=== PATIENT | male | born 1975 | race Caucasian/White ===

== ENCOUNTER 2018-08-22 16:13 | Observation (INO) | payer BC ==
[2018-08-22] MEDS ORDERED: Ketorolac INJ* 30 MG/ML 1 ML VIAL IV PUSH ONE (16:19)
[2018-08-22 16:42] LABS: ABS Basophils 0.1 10^3/ul (0-0.2); ABS Eosinophils 0.1 10^3/ul (0-0.6); ABS Lymphocytes 2.4 10^3/ul (1.0-4.8); ABS Monocytes 0.8 10^3/ul (0-0.8); ABS Neutrophils 8.3 10^3/ul (1.5-7.7); ABS Nucleated RBC 0 10^3/ul; Eosinophil % 0.8 % (0-6); Hematocrit 45 % (42-52); Hemoglobin 15.6 g/dl (14.0-18.0); Lymphocyte % 20.9 % (25-47); Mean Corpuscular HGB Conc 34 g/dl (31-36); Mean Corpuscular Hemoglobin 30 pg (27-31); Mean Corpuscular Volume 88 fL (80-94); Mean Platelet Volume 8.5 fL (7.4-10.4); Nucleated Red Blood Cells % 0.1; Platelet Count 235 10^3/ul (150-450); Red Blood Count 5.15 10^6/ul (4.00-5.40); Red Cell Distribution Width 13 % (10.5-15); White Blood Count 11.6 10^3/ul (3.5-10.8)
--- NOTE | 2018-08-22 16:54 | ED ---
GI/ HPI - HPI Summary HPI Summary: The pt is a 43 y/o male presenting [facility] c/o sudden onset R flank pain worse today evening. He reports a Mhx of kidney stones. Dr. Amara MD is his urologist. The pain is rated 7/10 in severity. He notes intermittent hematuria lasting 5 days and nausea but denies vomiting, diarrhea, SOB, and CP. 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 Negative: Vomiting, Diarrhea - Allergy/Home Medications Allergies/Adverse Reactions: Allergies Allergy/AdvReac Type Severity Reaction Status Date / Time No Known Allergies Allergy Verified 08/22/18 16:23 PMH/Surg Hx/FS Hx/Imm Hx Previously Healthy: No Cardiovascular History: Reports: Hx Pacemaker/ICD - 3rd degree heart block History: Reports: Hx Kidney Stones - Cancer History Cancer Type, Location and Year: None reported Infectious Disease History: No Infectious Disease History: Denies: Traveled Outside the [place] in Last 30 Days - Family History Known Family History: Positive: Hypertension, Other - CA - Social History Occupation: Employed Full-time Lives: With Family Alcohol Use: None Substance Use Type: Reports: None Smoking Status (MU): Never Smoked Tobacco Review of Systems Negative: Chest Pain Negative: Shortness Of Breath Positive: Nausea. Negative: Vomiting, Diarrhea Positive: flank pain - R , hematuria All Other Systems Reviewed And Are Negative: Yes Physical Exam - Summary Physical Exam Summary: Appearance: Colicky appearing, Well-nourished, lying in bed comfortable Skin: Warm, dry, no obvious rash Eyes: sclera anicteric, no conjunctival pallor ENT: mucous membranes moist Neck: deferred Respiratory: No signs of respiratory distress Cardiovascular: Appears well perfused, pulses are nml Abdomen: deferred Musculoskeletal: Moving all 4 extremities without obvious discomfort Neurological: Awake and alert, mentation is normal, speech is fluent and appropriate Psychiatric: affect is normal, does not appear anxious or depressed Triage Information Reviewed: Yes Vital Signs On Initial Exam: Initial Vitals Temp Pulse Resp BP Pulse Ox 97.7 F 78 22 155/81 96 08/22/18 16:21 08/22/18 16:21 08/22/18 16:21 08/22/18 16:21 08/22/18 16:21 Vital Signs Reviewed: Yes Diagnostics - Vital Signs Vital Signs Temp Pulse Resp BP Pulse Ox 08/22/18 16:21 97.7 F 78 22 155/81 96 - Laboratory Lab Results: Lab Results 08/22/18 Range/Units 16:23 WBC 11.6 H (3.5-10.8) 10^3/ul RBC 5.15 (4.00-5.40) 10^6/ul Hgb 15.6 (14.0-18.0) g/dl Hct 45 (42-52) % MCV 88 (80-94) fL MCH 30 (27-31) pg MCHC 34 (31-36) g/dl RDW 13 (10.5-15) % Plt Count 235 (150-450) 10^3/ul MPV 8.5 (7.4-10.4) fL Neut % (Auto) 71.2 (38-83) % Lymph % (Auto) 20.9 L (25-47) % Sebastian % (Auto) 6.5 (0-7) % Eos % (Auto) 0.8 (0-6) % Baso % (Auto) 0.6 (0-2) % Absolute Neuts (auto) 8.3 H (1.5-7.7) 10^3/ul Absolute Lymphs (auto) 2.4 (1.0-4.8) 10^3/ul Absolute Monos (auto) 0.8 (0-0.8) 10^3/ul Absolute Eos (auto) 0.1 (0-0.6) 10^3/ul Absolute Basos (auto) 0.1 (0-0.2) 10^3/ul Absolute Nucleated RBC 0 10^3/ul Nucleated RBC % 0.1 Result Diagrams: 08/22/18 16:23 08/22/18 16:23 Lab Statement: Any lab studies that have been ordered have been reviewed, and results considered in the medical decision making process. - CT Abd/Pel CT CT Interpretation Completed By: Radiologist - IMPRESSION: 1. THERE IS AN 8 MM CALCULUS PRESENT AT THE RIGHT URETEROPELVIC JUNCTION CAUSING MILD HYDRONEPHROSIS. 2. THERE ARE SEVERAL SMALL ADDITIONAL BILATERAL RENAL CALCULI. The ED physician reviewed this radiology report. - EKG 16:37 Cardiac Rate: NL EKG Rhythm: Sinus Rhythm Summary of EKG Findings: NSR at 76 BPM, P waves, QRS complex, and T waves are within normal limits, T waves and intervals are normal, no ischemic changes. This is a normal EKG GIGU Course/Dx - Course Course Of Treatment: A 43 year-old M presents to the ED with a CC of sudden onset R flank pain worse today evening. The pain is rated 7/10 in severity. He notes intermittent hematuria lasting 5 days and nausea but denies vomiting, diarrhea, SOB, and CP. A physical exam revealed a colicky appearance. An EKG reveals is unremarkable. An Abd/Pel CT is abnormal. In the ED course, the pt was given N.s 0.9% 4000 ml , Ketorolac 10 mg IV and Ondansetron 8mg IV which improved the symptoms. I discussed the care of the patient with Dr. Maloney who agreed to see the pt in the ED and recommended admitting and planning for surgery. Patient will be admitted with a final Dx of renal calculi. Pt is agreeable with this plan. Allergies noted. - Diagnoses Provider Diagnoses: Renal calculi - Physician Notifications Discussed Care Of Patient With: Severo Maloney - Urologist Time Discussed With Above Provider: 17:50 Instructed by Provider To: MD Will See In ED - Dr. Maloney also recommends admiting the pt and planning a surgery for tomorrow. Discharge - Sign-Out/Discharge Documenting (check all that apply): Patient Departure - Admit - Discharge Plan Condition: Stable Disposition: ADMITTED TO [facility] - Billing Disposition and Condition Condition: STABLE Disposition: Admitted to [facility] - Attestation Statements Document Initiated by Scribe: Yes Documenting Scribe: Olimpia Jackson Provider For Whom Grzegorz is Documenting (Include Credential): Dr. Jayden Rahman MD Scribe Attestation: Olimpia Bean , scribed for Dr. Jayden Rahman MD on 08/22/18 at 2140. Scribe Documentation Reviewed: Yes Provider Attestation: The documentation as recorded by the scribeOlimpia accurately reflects the service I personally performed and the decisions made by me, Dr. Jayden Rahman MD
[2018-08-22 17:09] LABS: Urine Appearance Clear; Urine Blood 2+ (Negative); Urine Color Yellow; Urine Ketones Trace (Negative); Urine Protein Negative (Negative); Urine Red Blood Cell 2+(6-10/hpf) (Absent); Urine Specific Gravity 1.016 (1.010-1.030); Urine Urobilinogen Negative (Negative); Urine White Blood Cell Trace(0-5/hpf) (Absent)
[2018-08-22] MEDS ORDERED: Ondansetron INJ* 2 MG/ML VIAL IV ONE (17:29)
[2018-08-22] MEDS ORDERED: NS 0.9% 1000 ML* 2,000 ML IV ONE (17:29)
[2018-08-22] MEDS ORDERED: Ondansetron INJ* 2 MG/ML VIAL ONE (17:30)
[2018-08-22] MEDS: NS 0.9% 1000 ML* 2,000 ML IV ONE (17:33)
[2018-08-22] MEDS ORDERED: Morphine VIAL* 4 MG/ML VIAL (1 ml vial) IV ONE (18:08)
[2018-08-22] MEDS ORDERED: Acetaminophen TAB* 325 MG PO PRN (19:13)
[2018-08-22] MEDS ORDERED: Ondansetron INJ* 2 MG/ML VIAL IV PRN (19:13)
[2018-08-22] MEDS ORDERED: Morphine VIAL* 4 MG/ML VIAL (1 ml vial) IV PRN (19:13)
[2018-08-22] MEDS ORDERED: cefTRIAXone(*) 1 GM in NS 0.9% 50 ML* 50 ML IVPB SCH (19:15)
[2018-08-22] MEDS ORDERED: cefTRIAXone(*) 1 GM in NS 0.9% 50 ML* 50 ML IVPB STA (19:22)
[2018-08-22] MEDS ORDERED: Ketorolac INJ* 15 MG/ML 1 ML VIAL ONE (19:28)
[2018-08-22] MEDS: Ketorolac INJ* 15 MG/ML 1 ML VIAL IV PUSH PRN (19:31)
--- NOTE | 2018-08-22 20:27 | CONS ---
CC: Jose Newton MD * UROLOGY CONSULTATION: DATE OF CONSULT: 08/22/18 REFERRING PHYSICIAN: Dr. Rahman in the Emergency Department. DIAGNOSES: 1. Right flank pain. 2. Right hydronephrosis. 3. Obstructing calculus, right ureteropelvic junction. HISTORY OF PRESENT ILLNESS: Moshe Ypa is a 43-year-old gentleman with a history of bilateral renal calculi. He had actually been evaluated in my office just a day earlier for an episode of gross hematuria and left flank pain. He was noted to be missing a previously noted small left renal calculus. My feeling was that he may have passed that calculus and he now called earlier today with complaints of right flank pain and since he was known to have a lower pole calculus in the right kidney, I requested him to come to the emergency room. A CT scan done in the emergency room revealed a fairly large, about 8 to 9 mm calculus at the right ureteropelvic junction with right hydronephrosis. PAST MEDICAL HISTORY: Significant for third-degree heart block for which he underwent pacemaker insertion about 10 to 12 years ago. ALLERGIES: No known drug allergies. REVIEW OF SYSTEMS: He is otherwise in excellent health. There is no history of diabetes mellitus or any other major systemic illness. He denies any chest pain or shortness of breath. PHYSICAL EXAM: Reveals a pleasant mildly uncomfortable middle-aged gentleman. Blood pressure is 155/81, pulse rate 78 per minute and regular, respirations 22 per minute, temperature 97.7, oxygen saturation 97% on room air. Cardiovascular : Regular rate and rhythm. S1 and S2. Lungs are clear bilaterally. Abdomen is soft with right flank tenderness. DIAGNOSTIC STUDIES/LAB DATA: Review of labs revealed a white count of 11.6, hemoglobin and hematocrit 15.6 and 45 with a platelet count of 235,000. Review of chemistry studies reveals a sodium of 139, potassium of 4.0, BUN and creatinine are 16 and 0.94 with a glucose of 126. Review of the urinalysis reveals urine pH of 6.0 with 2+ blood, negative nitrite, negative leukocyte esterase and absent bacteria. I personally reviewed the CT scan which revealed an approximately 8 to 9 mm calculus at the right ureteropelvic junction along with right hydronephrosis and small additional bilateral renal calculi. IMPRESSION: I discussed the CT findings and the management options in detail with Moshe. Given the size and the proximal location of the calculus, I think the best strategy would be right stent insertion to be followed at some point in the near future by shockwave lithotripsy for definitive treatment of the calculus. The other option would be to try conservative management, but given the size and the proximal location, it is unlikely that this would be easy for him to pass a stone of that size without considerable pain for several days or possibly weeks. PLAN: Plan will be right stent insertion (to be followed in the near future by lithotripsy). I will be requesting the hospitalist service to evaluate and admit the patient and also to obtain cardiology evaluation if they deem it necessary. [id number]/CPS #: [id number] DENISE
[2018-08-22] MEDS: NS 0.9% 1000 ML* 1,000 ML IV SCH (21:00)
[2018-08-23] MEDS ORDERED: LORazepam INJ* 2 MG/ML 1 ML VIAL IV PUSH STA (00:05)
--- NOTE | 2018-08-23 00:52 | HP ---
CC: Dr. Newton * HISTORY AND PHYSICAL: DATE OF ADMISSION: 08/22/18 PRIMARY CARE PROVIDER: Dr. Newton. ATTENDING PHYSICIAN WHILE IN THE HOSPITAL: Dr. Newman * (report dictated by Indra Gee NP). CONSULTING UROLOGIST: Dr. Maloney. CHIEF COMPLAINT: 1. Abdominal discomfort. 2. Nausea, vomiting. HISTORY OF PRESENT ILLNESS: Mr. Yap is a 43-year-old male patient. He has a history of a third-degree heart block, status post pacemaker in 2004, and also has a history of nephrolithiasis. The patient is presenting today. He was in [place] over the last week. He had an episode of hematuria and slight left-sided flank pain. It resolved on Tuesday. He went to see his urologist on Tuesday and it was noted that he no longer had a previously known stone in his left kidney; however, it was noted that he had a stone in his right kidney and it appeared to be in the upper pole of the kidney, it was stable. However, today, around 1529, he was at work; he developed a sudden onset of pain in the right flank with associated nausea and vomiting. Said the pain came in and went away and he knew he felt this like one of his previous kidney stones. He became nauseous. The pain was becoming increasingly unbearable. He was concerned and came into the ER, and he was ultimately found to have a right-sided kidney stone with mild obstruction, mild hydronephrosis. He denies any chest pain. He says he has been feeling well. He denies having any fevers. Denies having any shortness of breath. No orthopnea. No nocturnal dyspnea. He has abdominal pain, mostly it is on the right flank. He is denying having any fevers or chills. He denied having any more hematuria. He says that typically when he is feeling well, he is able to walk up a flight of stairs. He does not have any chest pain. He is very active. He does have a pacemaker and he says to his knowledge he is not paced all the time and he is very rarely paced, he says less than 1% of the time. He came in to the ED, was evaluated, and because of the kidney stone, we were asked to evaluate for admission, also because of his complex medical history. PAST MEDICAL HISTORY: Significant for: 1. Nephrolithiasis. 2. Third-degree heart block. PAST SURGICAL HISTORY: 1. He has had pacemaker. 2. Lithotripsy. 3. Right lower extremity ORIF. MEDICATIONS: Home meds include: 1. Cetirizine 10 mg p.o. daily. 2. Flonase 2 sprays to both nares daily. ALLERGIES TO MEDICATIONS: Include TETRACYCLINE. FAMILY HISTORY: His mother has skin cancer. His father's history is unknown. SOCIAL HISTORY: He does not smoke. He rarely drinks alcohol. Surrogate decision maker is his . REVIEW OF SYSTEMS: There is no documented fever. He denied having any significant weight change. There is no double vision. He denied having any ear discharge. There is no rhinorrhea. There is no sore throat. There is no thyroid enlargement. He denied having any chest pain. There is no orthopnea. There is no nocturnal dyspnea. There is right-sided flank pain per my HPI. There was nausea, but there is no dysuria, no frequency, no seizure. There was no loss of consciousness. Review of 14 systems was completed, all others negative. PHYSICAL EXAMINATION GENERAL: At this time, Mr. Yap is a 43-year-old male patient. He appears to be well nourished, well developed. He does not appear to be in any acute distress. VITAL SIGNS: Blood pressure 145/80, pulse 77, respirations of 20, O2 sat 96%, temperature 97.7. HEENT: Head: Atraumatic and normocephalic. Eyes: EOMs are intact. Sclerae are anicteric and not pale. Throat: Oral mucosa appears to be moist. No oropharyngeal erythema. NECK: Supple. LUNGS: Clear to auscultation. He had no wheezes, rales, or rhonchi. HEART: Sounds S1, S2. He had a regular rate and rhythm. No murmurs, rubs, or gallops. ABDOMEN: Soft. It was flat, nontender. He had no CVA tenderness. Bowel sounds are present. EXTREMITIES: Pulses were 2+ throughout. He is moving all 4 extremities with 5/ 5 strength. NEUROLOGIC: The patient is awake. He is alert. He is oriented x3. His tongue is midline. His specialties operator are equal. He had no gross focal deficits. SKIN: Intact. DIAGNOSTIC STUDIES/LAB DATA: Labs reveal a WBC of 11.6, RBC of 5.15, hemoglobin of 15.6, hematocrit of 45, platelet count of 235. His sodium was 139 , potassium of 4.0, chloride of 103, bicarb of 29, BUN 16, creatinine of 0.94, glucose 126, calcium 9.3. Total bili 1.1, AST 18, ALT 21, alk phos 54, albumin of 4.4. Urine showed trace ketones, 2+ blood, 2+ rbc's, presence of squamous epithelial cells. He did have an EKG obtained today. It shows a normal sinus rhythm with a rate of 79. He does have a first-degree block, but no ST elevation or T-wave inversions. He had a normal axis. I have a previous EKG from 2 years ago. The EKGs are similar, there are no acute changes noted. Old medical records were reviewed. ASSESSMENT AND PLAN: Mr. Yap is a 43-year-old male patient coming into the ED today with complaints of right-sided flank pain, found to have an obstructing right- sided 8-mm stone. We were asked to evaluate for admission. He will be admitted under observation status for: 1. Right-sided nephrolithiasis with mild hydronephrosis. Dr. Maloney has been consulted. The plan will be for placement of a stent tomorrow. I did touch base with the [employer] rep Can; his number is [phone]. He is not recommending any changes currently to the pacemaker given the proposed procedure ; however, if Anesthesia or Urology have any questions, I will defer to discuss with him; but at this point in terms of cardiac and risk stratification, the patient is low risk. He has no active cardiac symptoms. His RCRI score is 0. I am getting a chest x- ray for further stratifications. His EKG is stable. He is not having any active cardiac symptoms, so he is medically optimized for the proposed procedure. 2. History of third-degree heart block. Again, I did touch base with [employer] at [phone]. If there are any further questions by Urology or Anesthesia, I will direct them to call; but he is stable from this standpoint and he is not paced currently. According to the patient, he is paced less than 1% of the time. 3. DVT prophylaxis: I have ordered SCDs. 4. Fluids, electrolytes, and nutrition: He can have a regular diet and he will be n.p.o. after midnight. 5. Code status: Full code. TIME SPENT: Time spent on the admission was 60 minutes, greater than half of the time spent [id number] with the patient obtaining my history and physical, the other half of the time spent going over the plan of care with the patient and implementing the plan of care. I did discuss the plan of care with my attending, Dr. Newman; who is in agreement. INDRA GEE, PALLET STONE POSITIONER [id number]/CPS #: [id number] DENISE
[2018-08-23] MEDS: Ketorolac INJ* 15 MG/ML 1 ML VIAL IV PUSH PRN ×2 (03:56→10:07)
[2018-08-23] MEDS: NS 0.9% 1000 ML* 1,000 ML IV SCH (04:56)
[2018-08-23 05:53] LABS: ABS Basophils 0.1 10^3/ul (0-0.2); ABS Eosinophils 0 10^3/ul (0-0.6); ABS Lymphocytes 1.1 10^3/ul (1.0-4.8); ABS Monocytes 0.9 10^3/ul (0-0.8); ABS Neutrophils 9.9 10^3/ul (1.5-7.7); ABS Nucleated RBC 0 10^3/ul; Eosinophil % 0.2 % (0-6); Hematocrit 41 % (42-52); Hemoglobin 14.1 g/dl (14.0-18.0); Lymphocyte % 9.2 % (25-47); Mean Corpuscular HGB Conc 34 g/dl (31-36); Mean Corpuscular Hemoglobin 30 pg (27-31); Mean Corpuscular Volume 88 fL (80-94); Mean Platelet Volume 8.3 fL (7.4-10.4); Nucleated Red Blood Cells % 0.1; Platelet Count 186 10^3/ul (150-450); Red Blood Count 4.68 10^6/ul (4.00-5.40); Red Cell Distribution Width 13 % (10.5-15)
[2018-08-23 06:15] LABS: INR 0.99 (0.77-1.02)
[2018-08-23 06:55] LABS: EGFR Non-African American 65.8 (>60)
[2018-08-23] MEDS ORDERED: Iohexol 180 (CONTRAST) 10 ML SDV IV ONE (11:25)
[2018-08-23] MEDS ORDERED: fentaNYL* 50 MCG/ML 2 ML VIAL (100 MCG VIAL) ONE (11:28)
[2018-08-23] MEDS ORDERED: Midazolam* 1 MG/ML 5 ML VIAL (5 MG) ONE (11:28)
[2018-08-23] MEDS ORDERED: Lidocaine 2% PF * 5 ML VIAL ONE (11:57)
[2018-08-23] MEDS ORDERED: Propofol* 10 MG/ML 20 ML BTL IV PUSH ONE (11:57)
[2018-08-23] MEDS ORDERED: Gentamicin ADULT (*) 160 MG in NS 0.9% 100 ML* 100 ML IVPB ONE (12:00)
[2018-08-23] MEDS ORDERED: Naloxone* 0.4 MG/ML 1 ML VIAL IV PRN (12:13)
[2018-08-23 15:19] VITALS: BP 143/72
[2018-08-23] MEDS ORDERED: Ciprofloxacin TAB* 500 MG PO ONE (15:41)
--- NOTE | 2018-08-24 01:32 | OP ---
CC: Dr. Newton * DATE OF OPERATION: 08/23/18 - ROOM #349 DATE OF : 77 SURGEON: Severo Maloney MD ANESTHESIOLOGIST: Dr. Lawton. ANESTHESIA: General. PRE-OP DIAGNOSES: 1. Right hydronephrosis. 2. Obstructing calculus, right ureteropelvic junction. POST-OP DIAGNOSES: 1. Right hydronephrosis. 2. Obstructing calculus, right ureteropelvic junction. 3. Urethral strictures. OPERATIVE PROCEDURE: Cystoscopy, right retrograde pyelogram, right ureteral calculus manipulation, and right stent insertion. COMPLICATIONS: None. STENT USED: A 7-Botswanan stent, right ureter. OPERATIVE FINDINGS: 1. Strictures, bulbar urethra. 2. Small diverticulum, left side of bladder. 3. Right hydronephrosis with obstructing calculus at right ureteropelvic junction. SPECIMEN: Urine from right kidney for culture and sensitivity. INDICATIONS: Moshe Yap is a 43-year-old gentleman with a history of recurrent renal calculi. He was evaluated for an obstructing calculus at the right ureteropelvic junction and is being brought in for urgent right stent insertion to be followed in the near future by lithotripsy. DESCRIPTION OF PROCEDURE: After induction of general anesthesia, the patient was placed in dorsal lithotomy position. Sequential compression devices were in place and functioning. Initial evaluation revealed 2 strictures in the bulbar urethra, which were carefully negotiated. The prostate was mildly enlarged. The bladder was examined. There was a small diverticulum noted in the left side of the bladder above the left orifice. Right retrograde pyelogram revealed right hydronephrosis. The radiopaque calculus could be seen impacted at the ureteropelvic junction. Using a guidewire, this was carefully manipulated proximally. Once this was done, there was a significant amount of drainage of cloudy urine from the right kidney, which was sent for culture and sensitivity. Once the stone had been manipulated proximally, a 7-Botswanan stent was introduced and positioned under fluoroscopy with good proximal and distal positioning obtained. The bladder was emptied. The patient tolerated the procedure satisfactorily and was transferred back to the recovery area in stable condition. [id number]/[facility] #: [id number] [facility]
--- NOTE | 2018-08-24 10:41 | DS ---
CC: Dr. Newton * DISCHARGE SUMMARY: DATE OF ADMISSION: 08/22/18 DATE OF DISCHARGE: 08/23/18 PRIMARY CARE PROVIDER: Dr. Newton. UROLOGIST: Dr. Maloney. PRINCIPAL DIAGNOSIS: Right ureteropelvic junction obstructing stone. SECONDARY DIAGNOSES: History of 3rd degree heart block, status post pacemaker insertion. DISCHARGE MEDICATIONS: 1. Ciprofloxacin 500 mg p.o. b.i.d. x5 days. 2. Seymour 5/325 one tab p.o. q.6 hours p.r.n. pain. 3. Flonase 2 squirts both nostrils daily. 4. Cetirizine 10 mg p.o. daily. HOSPITAL COURSE: Mr. Quiros is a 43-year-old male who presented to the emergency room on 08/22/18 with complaints of abdominal pain, nausea, and vomiting. The patient underwent a CT scan of the abdomen and pelvis which revealed an 8 mm calculus present at the right ureteropelvic junction causing mild hydronephrosis as well as several small additional bilateral renal calculi. The patient stated that he has a history of passing kidney stones; however, has never required a stent in the past. The patient was admitted and hydrated overnight. He had pain control administered. The patient was taken to the operating room by Dr. Maloney on 08/23/18 where a right ureteral stent was placed. By verbal report from Dr. Maloney, dark urine was noted within the pelvis of the kidney. A culture was sent. It was Dr. Maloney's recommendation that the patient be treated with 5 days of antibiotic therapy while awaiting the culture. The patient at this point is feeling much better in terms of his pain , though he does have burning pain with urination. We discussed that this is likely related to the instrumentation performed in the operating room. At this point, the patient is felt to be stable for discharge home. On the day of discharge, the patient is awake, alert and oriented, sitting up in bed in no acute distress. His vital signs are stable. His cardiac exam reveals a normal S1, S2 with a regular rate and rhythm. His lungs are clear. His abdomen is soft, nontender, nondistended. FOLLOWUP CONCERNS: The patient is being discharged home today 08/23/18. Activity level is as tolerated. Diet is regular. CONDITION ON DISCHARGE: Stable. The patient has been instructed to follow up with his primary care provider in the next 4 to 7 days, to contact Dr. Maloney's office to make an appointment for lithotripsy in the next couple of weeks. TIME SPENT: Twenty five minutes was spent discharging this patient. [id number]/[facility] #: [id number] DENISE
== END 2018-08-23 16:20 | disposition home or self-care (01) ==
LOC: ED 16:13 → SSU 19:05
PROVIDERS: ADMIT Internal Medicine; ATTEND Hospitalist
DX: N13.2 Hydronephrosis with renal and ureteral calculous obstruction (principal); N20.1 Calculus of ureter; N35.919 Unspecified urethral stricture, male, unspecified site; R10.84 Generalized abdominal pain; N32.3 Diverticulum of bladder
CPT/HCPCS: 36415; 71045; 74176; 74420; 80048; 80053; 81003; 81015; 85025; 85610; 87086; 93005; 96374; 96375; 99283; A9270-GY; G0378; J0696; J1580; J1885; J2060; J2250; J2270; J2405; J2704; J3010

== ENCOUNTER 2018-09-04 08:19 | Day surgery (SDC) | payer BC ==
[~2018-09-04 08:19] MED LIST: Acetaminophen TAB* 325 MG PO PRN; Buffered Lidocaine 0.9% SYRIN* 5 ML/SYR SYRINGE INTRADERM ONE; DiMENhydriNATE IV* 50 MG/ML VIAL IV PUSH PRN; HYDROcodone/ACETAMIN 5-325 MG* 1 TAB PO PRN; Levalbuterol 0.63MG/3ML NEB* UNIT OF USE INH PRN; Naloxone* 0.4 MG/ML 1 ML VIAL IV PRN; Ondansetron INJ* 2 MG/ML VIAL IV PRN; PROCHLORPERAZINE INJ 5 MG/ML 2 ML VIAL IV PRN; diPHENhydraMINE IV* 50 MG/ML 1 ml VIAL (BENADRYL) IV PRN; fentaNYL* 50 MCG/ML 2 ML VIAL (100 MCG VIAL) IV PRN
[2018-09-04] MEDS ORDERED: cefTRIAXone(*) 2 GM ADDV.VIAL IVPB ONE (08:58)
[2018-09-04] MEDS ORDERED: Morphine VIAL* 10 MG/ML 1 ML VIAL ONE (08:58)
[2018-09-04] MEDS ORDERED: fentaNYL* 50 MCG/ML 2 ML VIAL (100 MCG VIAL) ONE (10:16)
[2018-09-04] MEDS ORDERED: Midazolam* 1 MG/ML 2 ML VIAL (2 MG) ONE (10:16)
[2018-09-04] MEDS ORDERED: Famotidine IV* 10 MG/ML 2 ML (20 mg) ONE (10:26)
[2018-09-04] MEDS ORDERED: Propofol* 10 MG/ML 20 ML BTL IV PUSH ONE (11:12)
[2018-09-04] MEDS ORDERED: Dexamethasone IV* 4 MG/ML 1 ML (4 MG) ONE (11:15)
[2018-09-04] MEDS ORDERED: Lidocaine 2% PF * 5 ML VIAL ONE (11:15)
[2018-09-04] MEDS ORDERED: Furosemide IV* 10 MG/ML 2 ML VIAL (20 MG) ONE (13:17)
[2018-09-04 14:27] VITALS: BP 119/80
--- NOTE | 2018-09-05 04:58 | OP ---
CC: Dr. Newton * DATE OF OPERATION: 09/04/18 - [facility] DATE OF : 77 SURGEON: Severo Maloney MD ANESTHESIOLOGIST: Dr. Kate. ANESTHESIA: General. PRE-OP DIAGNOSIS: Right renal calculus. POST-OP DIAGNOSIS: Right renal calculus. OPERATIVE PROCEDURE: Shockwave lithotripsy of right renal calculus. COMPLICATIONS: None. INDICATIONS: Moshe Yap is a 43-year-old gentleman who had undergone urgent right stent insertion because of obstructing calculus of the right ureteropelvic junction. The stone was manipulated back into the kidney at the time of stent insertion, and he is now being brought in for lithotripsy. POSTOPERATIVE CONDITION: Stable. DESCRIPTION OF PROCEDURE: After induction of general anesthesia, the patient was placed on the lithotripsy table in supine position. The calculus, which was in the lower pole of the right kidney, was localized using fluoroscopy. Shock- wave lithotripsy was commenced at a rate of 60 shocks per minute (a magnet had been placed over the pacemaker prior to the procedure). After the initial 300 shocks, there was a pause in lithotripsy for several minutes in an effort to minimize any potential trauma to the kidney. Lithotripsy was then resumed and periodic imaging revealed good localization and fragmentation. A total of 2400 shocks were administered. The patient tolerated the procedure satisfactorily and was transferred back to the recovery area in stable condition. The plan is to obtain a postoperative x-ray to assess the degree of fragmentation prior to scheduling stent removal. [id number]/[facility]PS #: [id number] [facility]TDD
== END 2018-09-04 14:28 | disposition home or self-care (01) ==
LOC: OR 08:19
PROVIDERS: ATTEND Urology
DX: N20.0 Calculus of kidney (principal); I27.20 Pulmonary hypertension, unspecified; Z95.0 Presence of cardiac pacemaker; I44.2 Atrioventricular block, complete
CPT/HCPCS: 74018; J0696; J1100; J1940; J2250; J2270; J2704; J3010